=== PATIENT | female | born 1965 | race American Indian/Alaskan Native ===

== ENCOUNTER 2016-11-23 18:03 | Inpatient (IN) | payer OTHER ==
[2016-11-23] MEDS ORDERED: MYLICON PO PRN (18:46)
[2016-11-23] MEDS ORDERED: REGLAN IV PRN (18:46)
[2016-11-24] MEDS: TORADOL IV PRN ×4 (02:07→21:48)
[2016-11-24] MEDS: ZOFRAN IV PRN ×3 (02:08→21:48)
[2016-11-24] MEDS: LACTATED RINGERS 1,000 ML IV SCH ×2 (02:13→22:31)
[2016-11-24 04:28] LABS: Alanine Aminotransferase 14 units/L (7-56); Albumin 3.1 g/dL (3.9-5); Alkaline Phosphatase 65 units/L (35-129); Anion Gap 16 mmol/L; BUN/Creatinine Ratio 11.42; Blood Urea Nitrogen 8 mg/dL (7-17); Calcium 8.4 mg/dL (8.4-10.2); Carbon Dioxide 23 mmol/L (22-30); Chloride 104.2 mmol/L (98-107); Glucose 86 mg/dL (65-100); Potassium 3.8 mmol/L (3.6-5.0); Sodium 139 mmol/L (137-145); Total Protein 6.1 g/dL (6.3-8.2)
[2016-11-24 04:50] LABS: Basophils % (Auto) 0.4 % (0.0-1.8); Eosinophils % (Auto) 2.4 % (0.0-4.3); Hemoglobin 10.4 gm/dl (10.1-14.3); Mean Corpuscular HGB Conc 33 % (30-34); Mean Corpuscular Hemoglobin 27 pg (28-32); Mean Corpuscular Volume 83 fl (79-97); Red Blood Count 3.86 M/mm3 (3.65-5.03); Red Cell Distribution Width 15.3 % (13.2-15.2); White Blood Count 5.1 K/mm3 (4.5-11.0)
[2016-11-24 05:01] LABS: INR 0.95 (0.87-1.13)
[2016-11-24 05:11] LABS: Platelet Count 127 K/mm3 (140-440)
[2016-11-24] MEDS: LOVENOX SUB-Q SCH (09:26)
--- NOTE | 2016-11-24 11:42 | History and Physical Report ---
History of Present Illness Date of examination: 11/23/16 Date of admission: 11/23/16 22:37 Chief complaint: Abdominal Pain History of present illness: [51 y.o. F was admitted at [facility] with c/o abdominal pain x 3 days, n/ v when she presented to their ED. A CT abd/pelvis with PO showed focal dilation at site of distal anastomosis of her gastric bypass. There was no free air or signs of internal hernia. The patient was admitted for pain and n/v control. Over the course of her stay her n/v resolved but her abdominal pain remained. She was able to tolerate liquids and continued to have flatus and liquid bm. An ABD xr revealed all of the prior ingested PO contrasted on been evacuated. Since the patient's pain was not improving (remained at 7-8/10) despite use of toradol and tylenol, the next step would be a diagnostic laparoscopy. Dr. Heck does not perform surgery at [facility] therefore, arrangements were made for her to be transferred to [facility] in order for upcoming surgery. During patients hospital stay at [facility] she hit her toes (BL feet) on the IV pole while walking. XR images of BL feet did no reveal any fractures. Past History Past Medical History: hypertension (Reported as resolved), pulmonary embolism ( Completed Xarelto 08/2016), other (obesity and asthma) Past Surgical History: Other (hysterectomy, lap shahid, gastric bypass 2007, gastric bypass revision 2015) Social history: other (Currently unemployed due to work injury) Family history: other (Possible clotting disorders) Medications and Allergies Allergies Allergy/AdvReac Type Severity Reaction Status Date / Time levofloxacin AdvReac Unknown Unknown Unverified 11/23/16 18:34 lisinopril AdvReac Unknown Verified 11/23/16 18:30 Home Medications Medication Instructions Recorded Confirmed Last Taken Type ALBUTEROL Inhaler [ProAir HFA 11/24/16 Unknown History Inhaler] Ferrous Sulfate [Feosol] 325 mg PO BID 11/24/16 11/24/16 Unknown History Fluticasone/Salmeterol [Advair 1 each IH 11/24/16 Unknown History 100-50 Diskus] Rivaroxaban [Xarelto] 20 mg PO QDAY 11/24/16 11/24/16 Unknown History amLODIPine [Norvasc] 2.5 mg PO DAILY 11/24/16 11/24/16 Unknown History Active Meds: Active Medications Acetaminophen (Tylenol) 650 mg PO Q6H PRN PRN Reason: Pain, Mild (1-3) Enoxaparin Sodium (Lovenox) 40 mg SUB-Q QDAY [facility] Last Admin: 11/24/16 09:26 Dose: 40 mg Hydralazine HCl (Apresoline) 10 mg IV Q6H PRN PRN Reason: SBP > 150 Lactated Ringer's (Lactated Ringers) 1,000 mls @ 125 mls/hr IV DIRECT [facility] Last Admin: 11/24/16 02:13 Dose: 125 mls/hr Ketorolac Tromethamine (Toradol) 30 mg IV Q6H PRN PRN Reason: Pain , Severe (7-10) Stop: 11/25/16 18:59 Last Admin: 11/24/16 09:40 Dose: 30 mg Metoclopramide HCl (Reglan) 10 mg IV Q6H PRN PRN Reason: Nausea And Vomiting Ondansetron HCl (Zofran) 4 mg IV Q8H PRN PRN Reason: Nausea And Vomiting Last Admin: 11/24/16 09:27 Dose: 4 mg Simethicone (Mylicon) 80 mg PO Q6H PRN PRN Reason: Gas pain Review of Systems All systems: negative - Constitutional no fever, no fatigue - Cardiovascular no chest pain, no palpitations, no shortness of breath, no leg edema - Respiratory no cough, no shortness of breath, no congestion, no wheezing - Gastrointestinal abdominal pain, other (See HPI) - Genitourinary Genitourinary: no dysuria, no urinary frequency, no urgency, no mixed incontinence - Muskuloskeletal no myalgias, no limitation of motion - Integumentary no rash, no change in hair/nails - Neurological headaches, no weakness, no numbness, no tingling, no seizures, no loss of vision , no hearing difficulties - Psychiatric no anxiety, no depression - Endocrine no cold intolerance, no heat intolerance - Hematologic/Lymphatic no easy bruising, no easy bleeding - Allergic/Immunologic no urticaria Exam Vital Signs Temp Resp BP 98.4 F 18 144/94 11/23/16 23:11 11/23/16 23:11 11/23/16 23:11 - General physical appearance Positive: no distress, moderate pain - Eyes Positive: PERRL, normal occular movement - ENT Positive: no hearing loss - Neck Positive: trachea midline, no lymphadectomy - Respiratory Positive: normal expansion, normal respiratory effort, clear to auscultation - Cardiovascular Rhythm: regular Heart Sounds: Present: S1 & S2 - Extremities Extremities: no ischemia, pulses intact, pulses symmetrical, No edema, normal temperature, normal color, Full ROM - Breasts Breasts: normal - Abdomen Abdomen: Present: soft, bowel sounds normal, surgical scars, other (diffuse tenderness, reports pain mostly flank in origin). Absent: distended, masses, rebound, guarding, rigid, organomegaly - Genitourinary Female Genitourinary: deferred - Integumentary no rash, no abnormal pigmentation - Neurologic Neurologic: alert and oriented to time, place and person, motor strength and sensation are grossly intact, CN II-XII intact - Musculoskeletal normal gait, normal posture - Psychiatric Psychiatric: appropriate mood/affect Results - Labs 11/24/16 03:38 11/24/16 03:38 Abnormal lab results 11/24/16 11/24/16 Range/Units 03:38 03:38 MCH 27 L (28-32) pg RDW 15.3 H (13.2-15.2) % Plt Count 127 L (140-440) K/mm3 Lymph % (Auto) 45.2 H (13.4-35.0) % [place] % (Auto) 10.3 H (0.0-7.3) % Total Protein 6.1 L (6.3-8.2) g/dL Albumin 3.1 L (3.9-5) g/dL Diabetes panel 11/24/16 Range/Units 03:38 Sodium 139 (137-145) mmol/L Potassium 3.8 (3.6-5.0) mmol/L Chloride 104.2 (98-107) mmol/L Carbon Dioxide 23 (22-30) mmol/L BUN 8 (7-17) mg/dL Creatinine 0.7 (0.7-1.2) mg/dL Glucose 86 (65-100) mg/dL Calcium 8.4 (8.4-10.2) mg/dL AST 14 (5-40) units/L ALT 14 (7-56) units/L Alkaline Phosphatase 65 (35-129) units/L Total Protein 6.1 L (6.3-8.2) g/dL Albumin 3.1 L (3.9-5) g/dL Calcium panel 11/24/16 Range/Units 03:38 Calcium 8.4 (8.4-10.2) mg/dL Phosphorus 4.20 (2.5-4.5) mg/dL Albumin 3.1 L (3.9-5) g/dL Pituitary panel 11/24/16 Range/Units 03:38 Sodium 139 (137-145) mmol/L Potassium 3.8 (3.6-5.0) mmol/L Chloride 104.2 (98-107) mmol/L Carbon Dioxide 23 (22-30) mmol/L BUN 8 (7-17) mg/dL Creatinine 0.7 (0.7-1.2) mg/dL Glucose 86 (65-100) mg/dL Calcium 8.4 (8.4-10.2) mg/dL Adrenal panel 11/24/16 Range/Units 03:38 Sodium 139 (137-145) mmol/L Potassium 3.8 (3.6-5.0) mmol/L Chloride 104.2 (98-107) mmol/L Carbon Dioxide 23 (22-30) mmol/L BUN 8 (7-17) mg/dL Creatinine 0.7 (0.7-1.2) mg/dL Glucose 86 (65-100) mg/dL Calcium 8.4 (8.4-10.2) mg/dL Total Bilirubin 0.50 (0.1-1.2) mg/dL AST 14 (5-40) units/L ALT 14 (7-56) units/L Alkaline Phosphatase 65 (35-129) units/L Total Protein 6.1 L (6.3-8.2) g/dL Albumin 3.1 L (3.9-5) g/dL Assessment and Plan A: 51 y.o. F with hx of lap gastric bypass and lap gastric bypass revision admitted for abd pain P: Pt seen and examined in afternoon. Pt was still c/o abdominal pain mid abd radiating to her flank, 7-8. The pain had not changed. Pain medication help with the pain but the pain has not improved since admission to [facility]. Dr. Heck does not do surgery at [facility] hence reason for transfer to this facility. The patients needs diagnostic laparoscopy to assess the source of pain. The need for transfer had been discussed with the patient and she agreed to the transfer. Will manage pain with APAP and Toradol to avoid narcotics and the decreased GI motility it causes. Due to flank pain now being the origin, UTI suspect and U/A to be ordered.
--- NOTE | 2016-11-24 12:29 | History and Physical Report ---
History of Present Illness Date of examination: 11/24/16 Date of admission: 11/23/16 22:37 Chief complaint: abd pain History of present illness: 51 y.o. F transferred from [facility] with c/c of abdominal pain. At time of admission at [facility] [place] [facility] pt was c/o, abdominal pain, and n/v. A CT abd/pelvis with PO at time of admission showed focal dilation at site of distal anastomosis of her gastric bypass. There was no free air or signs of internal hernia. The patient was admitted for pain and n/v control. Over the course of her stay her n/v resolved but her abdominal pain remained. She was able to tolerate liquids and continued to have flatus and liquid bm. An ABDxr revealed all of the prior ingested PO contrasted on been evacuated. Since the patient's pain was not improving (remained at 7-8/10) despite use of toradol and tylenol, the next step would be a diagnostic laparoscopy. Dr. Heck does not perform surgery at [facility], there she was transf. to [facility].. Currently she continues to have abdominal pain, mid abd. Radiation to BL flanks. She denies dysuria. She denies n/v. +headache. She is passing flatus and has loose stools. She had a gastric bypass revision in 2015 after which she had a PE. She was seen by a vascular doctor per patient and her primary care doctor. She finished her xeralto in August 2016. She states she never had a work up for any heme disorders. Her primary care doctor is Dr. Moore Pre-revision bypass wt: 250lbs Wt: 185 last colonoscopy: per pt was done 10 years ago but unknown reason. Pt states it was "normal" Past History Past Medical History: hypertension, pulmonary embolism (finshed xeralto August 2016), other (PE ) Past Surgical History: hysterectomy, Other (Lap gastric bypass 2007, Lap gastric bypass revision December 2015) Social history: other (recent work injury keeps her from being able to work. ) Family history: no significant family history Medications and Allergies Allergies Allergy/AdvReac Type Severity Reaction Status Date / Time levofloxacin AdvReac Unknown Unknown Unverified 11/23/16 18:34 lisinopril AdvReac Unknown Verified 11/23/16 18:30 Home Medications Medication Instructions Recorded Confirmed Last Taken Type ALBUTEROL Inhaler [ProAir HFA 11/24/16 Unknown History Inhaler] Ferrous Sulfate [Feosol] 325 mg PO BID 11/24/16 11/24/16 Unknown History Fluticasone/Salmeterol [Advair 1 each IH 11/24/16 Unknown History 100-50 Diskus] Rivaroxaban [Xarelto] 20 mg PO QDAY 11/24/16 11/24/16 Unknown History amLODIPine [Norvasc] 2.5 mg PO DAILY 11/24/16 11/24/16 Unknown History Active Meds: Active Medications Acetaminophen (Tylenol) 650 mg PO Q6H PRN PRN Reason: Pain, Mild (1-3) Diphenhydramine HCl (Benadryl) 25 mg IV QHS PRN PRN Reason: Insomnia Enoxaparin Sodium (Lovenox) 40 mg SUB-Q QDAY [facility] Last Admin: 11/24/16 09:26 Dose: 40 mg Famotidine (Pepcid) 20 mg IV QDAY [facility] Hydralazine HCl (Apresoline) 10 mg IV Q6H PRN PRN Reason: Hypertension Lactated Ringer's (Lactated Ringers) 1,000 mls @ 125 mls/hr IV DIRECT [facility] Last Admin: 11/24/16 02:13 Dose: 125 mls/hr Ketorolac Tromethamine (Toradol) 30 mg IV Q6H PRN PRN Reason: Pain , Severe (7-10) Stop: 11/25/16 18:59 Last Admin: 11/24/16 09:40 Dose: 30 mg Ondansetron HCl (Zofran) 4 mg IV Q8H PRN PRN Reason: Nausea And Vomiting Last Admin: 11/24/16 09:27 Dose: 4 mg Simethicone (Mylicon) 80 mg PO Q6H PRN PRN Reason: Gas pain Sucralfate (Carafate) 1 gm PO Q6HR [facility] Review of Systems All systems: negative - Constitutional weakness, chronic headaches, no chills, no sweats, no anorexia, no fatigue, no lethargy - Cardiovascular no chest pain, no orthopnea, no palpitations - Respiratory no cough, no cough with sputum, no excessive sputum, no hemoptysis - Gastrointestinal other (per hpi ) - Genitourinary Genitourinary: flank pain, no dyspareunia, no dysmenorrhea, no pelvic pain, no dysuria - Muskuloskeletal other (bl knee pain ) - Integumentary no rash, no pruritis, no redness, no sores, no wounds, no jaundice - Neurological no head injury - Psychiatric change in sleep habits, no anxiety, no memory loss Exam Vital Signs Temp Resp BP 98.4 F 18 144/94 11/23/16 23:11 11/23/16 23:11 11/23/16 23:11 - General physical appearance Positive: well developed, well nourished, no distress, obese - Eyes Positive: PERRL - Respiratory Positive: normal expansion, normal respiratory effort - Cardiovascular Rhythm: regular - Extremities Extremities: no ischemia, pulses intact, pulses symmetrical Peripheral Pulses: within normal limits - Abdomen Abdomen: Present: soft, bowel sounds normal, other (non distended. soft, tender midabd. tender righ flank. no rebound no guarding no peritoneal signs ). Absent : distended - Genitourinary Female Genitourinary: deferred - Integumentary no rash, no growths - Neurologic Neurologic: alert and oriented to time, place and person, motor strength and sensation are grossly intact - Musculoskeletal normal posture - Psychiatric Psychiatric: appropriate mood/affect Results - Labs 11/24/16 03:38 11/24/16 03:38 Abnormal lab results 11/24/16 11/24/16 Range/Units 03:38 03:38 MCH 27 L (28-32) pg RDW 15.3 H (13.2-15.2) % Plt Count 127 L (140-440) K/mm3 Lymph % (Auto) 45.2 H (13.4-35.0) % [place] % (Auto) 10.3 H (0.0-7.3) % Total Protein 6.1 L (6.3-8.2) g/dL Albumin 3.1 L (3.9-5) g/dL Diabetes panel 11/24/16 Range/Units 03:38 Sodium 139 (137-145) mmol/L Potassium 3.8 (3.6-5.0) mmol/L Chloride 104.2 (98-107) mmol/L Carbon Dioxide 23 (22-30) mmol/L BUN 8 (7-17) mg/dL Creatinine 0.7 (0.7-1.2) mg/dL Glucose 86 (65-100) mg/dL Calcium 8.4 (8.4-10.2) mg/dL AST 14 (5-40) units/L ALT 14 (7-56) units/L Alkaline Phosphatase 65 (35-129) units/L Total Protein 6.1 L (6.3-8.2) g/dL Albumin 3.1 L (3.9-5) g/dL Calcium panel 11/24/16 Range/Units 03:38 Calcium 8.4 (8.4-10.2) mg/dL Phosphorus 4.20 (2.5-4.5) mg/dL Albumin 3.1 L (3.9-5) g/dL Pituitary panel 11/24/16 Range/Units 03:38 Sodium 139 (137-145) mmol/L Potassium 3.8 (3.6-5.0) mmol/L Chloride 104.2 (98-107) mmol/L Carbon Dioxide 23 (22-30) mmol/L BUN 8 (7-17) mg/dL Creatinine 0.7 (0.7-1.2) mg/dL Glucose 86 (65-100) mg/dL Calcium 8.4 (8.4-10.2) mg/dL Adrenal panel 11/24/16 Range/Units 03:38 Sodium 139 (137-145) mmol/L Potassium 3.8 (3.6-5.0) mmol/L Chloride 104.2 (98-107) mmol/L Carbon Dioxide 23 (22-30) mmol/L BUN 8 (7-17) mg/dL Creatinine 0.7 (0.7-1.2) mg/dL Glucose 86 (65-100) mg/dL Calcium 8.4 (8.4-10.2) mg/dL Total Bilirubin 0.50 (0.1-1.2) mg/dL AST 14 (5-40) units/L ALT 14 (7-56) units/L Alkaline Phosphatase 65 (35-129) units/L Total Protein 6.1 L (6.3-8.2) g/dL Albumin 3.1 L (3.9-5) g/dL Assessment and Plan - Patient Problems (1) Abdominal pain Current Visit: Yes Status: Acute Qualifiers: Abdominal location: A Plan to address problem: 51 y.o. F with hx of gastric bypass and revision 1 year ago: Presents with abdominal pain Pt is still c/o abdominal pain mid abd raidating to her flank, now 6-7/10 prev 8 -9. Continue pain control with toradol and tylenol. Avoid narcotics as they slow the bowel. Pt's pain has not significantly improved over her course at [facility]. She has been transferred to [facility] in order to have a diag laparoscopy, possible revision of bypass with Dr. Heck on Saturday. Source of pain is likely site of J-J anas where there is dilation and stasis of the jejunum causing pain. This phenomenon occurs with bypass patients but pain should be improving. She continues to have flatus and bowel movements and tolerates PO intake. She does not have fever or leukocytosis that would indicate an acute abdominal process. No acute surgery indicated at this time but non emergent diagnostic laparoscopy is warranted. Preop labs ordered for today. EKG to be performed as preop. Pt will remain on a Augusto I diet until Saturday night at which point she will be NPO. Encourage high protien intake. Pre albumin ordered for tomorrow am. Flank pain- r/yo cause. UA and urine culture ordered. Hx of PE: recently finished coursed of xeralto. PE post surgery and further work up for coagulation disorders has not been performed. Rec. pt follow up with heme/primary care at time of dc. Nausea: prn zofran GI proph: famotidine DVT proph: lovenox SCDs
--- NOTE | 2016-11-24 13:02 | Event Note ---
Per nursing records admission documentation overnight pt felt suicidal and when asked if she had a plan the answer was yes. Today, patient states she never felt suicidal and does not have a plan to harm herself. She wants to get better in order to take care of her grandson. She does not want to be in pain anymore and wants to have the surgery to figure what the problem. Liana the nurse was present during this conversation.
[2016-11-24] MEDS: PEPCID IV SCH ×3 (13:20→13:29)
[2016-11-24] MEDS: TYLENOL PO PRN (13:22)
[2016-11-24] MEDS: CARAFATE PO SCH ×2 (13:23→18:26)
[2016-11-24] MEDS: APRESOLINE IV PRN ×2 (15:57→21:50)
[2016-11-24 18:45] LABS: Bilirubin,Urine NEG (Negative); Blood,Urine NEG (Negative); Ketones,Urine NEG (Negative); Leukocyte Esterase,Urine TR (Negative); Mucus,Urine FEW /HPF; Nitrite,Urine NEG (Negative); Protein,Urine <15 mg/dL mg/dL (Negative); Urobilinogen,Urine < 2.0 mg/dL (<2.0)
[2016-11-24] MEDS: BENADRYL IV PRN (22:28)
[2016-11-25] MEDS: TYLENOL PO PRN (01:47)
[2016-11-25] MEDS: CARAFATE PO SCH ×4 (01:54→23:44)
[2016-11-25] MEDS: ZOFRAN IV PRN ×2 (04:14→23:35)
[2016-11-25] MEDS: TORADOL IV PRN ×2 (04:15→16:34)
[2016-11-25 04:59] LABS: Alanine Aminotransferase 12 units/L (7-56); Albumin 3.2 g/dL (3.9-5); Alkaline Phosphatase 69 units/L (35-129); Anion Gap 16 mmol/L; BUN/Creatinine Ratio 12.85; Blood Urea Nitrogen 9 mg/dL (7-17); Calcium 8.7 mg/dL (8.4-10.2); Carbon Dioxide 24 mmol/L (22-30); Chloride 103.5 mmol/L (98-107); Glucose 114 mg/dL (65-100); Potassium 3.8 mmol/L (3.6-5.0); Sodium 140 mmol/L (137-145); Total Protein 6.5 g/dL (6.3-8.2)
[2016-11-25 05:05] LABS: Basophils % (Auto) 0.4 % (0.0-1.8); Eosinophils % (Auto) 1.9 % (0.0-4.3); Hemoglobin 10.9 gm/dl (10.1-14.3); Mean Corpuscular HGB Conc 32 % (30-34); Mean Corpuscular Hemoglobin 27 pg (28-32); Mean Corpuscular Volume 83 fl (79-97); Red Blood Count 4.11 M/mm3 (3.65-5.03); Red Cell Distribution Width 15.3 % (13.2-15.2); White Blood Count 6.7 K/mm3 (4.5-11.0)
[2016-11-25 05:22] LABS: Platelet Count 138 K/mm3 (140-440)
[2016-11-25] MEDS: LOVENOX SUB-Q SCH ×2 (08:31→10:05)
[2016-11-25] MEDS: PEPCID IV SCH ×2 (08:31→10:05)
[2016-11-25] MEDS ORDERED: MAGNESIUM SULFATE IV ONE (09:49)
[2016-11-25] MEDS ORDERED: MORPHINE IV PRN (09:49)
--- NOTE | 2016-11-25 10:31 | Progress Note ---
Assessment and Plan - Patient Problems (1) Abdominal pain Current Visit: Yes Status: Acute Qualifiers: Abdominal location: A Plan to address problem: 51 y/o F with PMH of gastric bypass (2007) and gastric bypass revision (2015) presents with worsening abdominal pain. CT abd [place] [facility] showed dilation to JJ anastomosis, but repeat abd xr showed contrast throughout the entire GI tract without signs of dilation or obstruction. Rpt Abdxr days later showed complete elimination of contrast from GI tract. . Pt was transferred to [facility] 1 day ago for diagnostic lap with possible gastric bypass revision with Dr. Heck on Saturday. Pt c/o of continued diffuse abd pain radiating to bilat flanks. States no improvement with Toradol and Tylenol. Will add on Morphine due to lack of improvement in pain. No fever or leukocystosis. Pt to have non emergent diagnostic laparoscopy with Dr. Heck on Saturday with possible revision. EKG to be preformed preop. Pt to remain on Augusto diet until Saturday night and then will be NPO. Pre-albumin low at 0.170. Encouraged to continue high protein intake. If revision of bypass is warranted at time of surgery after evaluation via diagnostic laparoscopy she would be at greater risk for possible leak or anastomosis breakdown due to low prealbumin. The increased risk will be discussed with the patient so she fully understands the risks and benefits of the procedure. Pt takes percocet prn at home for knee pain and headaches. She does not state how much or how often. Her generalized body aches and continued abdominal pain could be from withdrawl of narcotics (as well as different pain threshold) since she has received very minimal to no morphine during her hospital stay until today. Due to her hx of bypass she still needs to go for dx lap in order to assess her bypass due to abdominal pain. Morphine will be added prn for severe pain. Flank pain - UA negative. Urine culture pending. Headache - Reports worst headache of her life. Hx of migraines. Family hx of aneurysms. CT head stat ordered. No gross deficits at this time DVT prophylaxis - SCDs and Lovenox Nausea - PRN Zofran GI prophylaxis - Famotidine Subjective Narrative: Pt seen and examined. Per nurse, no acute events overnight. Pt c/o progressively worsening bitemporal GRAF for the past 6 days and states it is "the worst headache of her life". Pt also reports diffuse abd pain radiating to her bilat flanks. Pt states she is passing gas and had an episode of watery diarrhea his morning. Pt c/o nausea secondary to her headache and states she attempted to vomit but only brought up mucous with some streaks of blood. At home pt states she usually takes percocet at home for headache or knee pain. She does not take it everyday but does not state how often she takes it. Pt refusing her Tylenol because she states it is making her nauseous and caused her to vomit. Denies any dysuria, hematuria, melena, vision changes, dizziness, or syncope. Denies focal weakness or numbness. She is also c/o generalized pain including her knees and back. Objective Vital Signs - 12hr 11/25/16 11/25/16 11/25/16 01:14 01:36 04:29 Temperature 98.2 F 98.2 F 98.2 F Pulse Rate 104 H 95 H Respiratory 22 22 18 Rate Blood Pressure 143/85 127/80 Blood Pressure 143/85 [Left] O2 Sat by Pulse 100 97 Oximetry 11/25/16 07:43 Temperature 98.4 F Pulse Rate Respiratory 18 Rate Blood Pressure 137/97 Blood Pressure [Left] O2 Sat by Pulse Oximetry - General physical appearance well developed, well nourished, moderate distress - Eyes PERRL, normal occular movement - ENT normal nares, no hearing loss - Neck trachea midline - Respiratory normal expansion, normal respiratory effort, clear to auscultation - Abdomen soft, tender (mid abd, RLQ and LLQ. ), bowel sounds hypoactive, not distended, not rebound, not guarding - Integumentary no rash - Neurologic normal coordination, normal sensation - Musculoskeletal normal posture - Psychiatric oriented to time, oriented to person, oriented to place, speech is normal - Additional Exam CN II to XII are intact. no gross deficits noted. - Labs 11/25/16 04:20 11/25/16 04:20 Diabetes panel 11/25/16 Range/Units 04:20 Sodium 140 (137-145) mmol/L Potassium 3.8 (3.6-5.0) mmol/L Chloride 103.5 (98-107) mmol/L Carbon Dioxide 24 (22-30) mmol/L BUN 9 (7-17) mg/dL Creatinine 0.7 (0.7-1.2) mg/dL Glucose 114 H (65-100) mg/dL Calcium 8.7 (8.4-10.2) mg/dL AST 20 (5-40) units/L ALT 12 (7-56) units/L Alkaline Phosphatase 69 (35-129) units/L Total Protein 6.5 (6.3-8.2) g/dL Albumin 3.2 L (3.9-5) g/dL Calcium panel 11/25/16 Range/Units 04:20 Calcium 8.7 (8.4-10.2) mg/dL Phosphorus 4.20 (2.5-4.5) mg/dL Albumin 3.2 L (3.9-5) g/dL Pituitary panel 11/25/16 Range/Units 04:20 Sodium 140 (137-145) mmol/L Potassium 3.8 (3.6-5.0) mmol/L Chloride 103.5 (98-107) mmol/L Carbon Dioxide 24 (22-30) mmol/L BUN 9 (7-17) mg/dL Creatinine 0.7 (0.7-1.2) mg/dL Glucose 114 H (65-100) mg/dL Calcium 8.7 (8.4-10.2) mg/dL Adrenal panel 11/25/16 Range/Units 04:20 Sodium 140 (137-145) mmol/L Potassium 3.8 (3.6-5.0) mmol/L Chloride 103.5 (98-107) mmol/L Carbon Dioxide 24 (22-30) mmol/L BUN 9 (7-17) mg/dL Creatinine 0.7 (0.7-1.2) mg/dL Glucose 114 H (65-100) mg/dL Calcium 8.7 (8.4-10.2) mg/dL Total Bilirubin 0.50 (0.1-1.2) mg/dL AST 20 (5-40) units/L ALT 12 (7-56) units/L Alkaline Phosphatase 69 (35-129) units/L Total Protein 6.5 (6.3-8.2) g/dL Albumin 3.2 L (3.9-5) g/dL - Imaging CT Scan - head: pending
--- NOTE | 2016-11-25 12:26 | Cat Scan Report ---
CT HEAD WITHOUT CONTRAST: HISTORY: Severe headache, worst headache of life. Serial contiguous axial images were obtained through the cranium. Intravenous contrast material was not administered. The ventricles are normal in size and appearance. There is no mass effect or midline shift. No areas of abnormally increased or decreased attenuation are seen. No mass lesion is seen. The mastoid air cells and visualized portions of the sinuses are normal. IMPRESSION: Cranial CT scan within normal limits.
[2016-11-25] MEDS: D5W/0.45% NACL/KCL 20 MEQ 20 MEQ/1,000 ML BAG IV SCH ×2 (12:35→23:39)
[2016-11-25] MEDS ORDERED: MAGNESIUM SULFATE 2GM/50ML 2 GM/50 ML BAG IV ONE (13:00)
[2016-11-25] MEDS: BENADRYL IV PRN (23:35)
[2016-11-26 03:59] LABS: Hematocrit 32.5 % (30.3-42.9); Hemoglobin 10.3 gm/dl (10.1-14.3); Mean Corpuscular HGB Conc 32 % (30-34); Mean Corpuscular Hemoglobin 27 pg (28-32); Mean Corpuscular Volume 84 fl (79-97); Platelet Count 221 K/mm3 (140-440); Red Blood Count 3.88 M/mm3 (3.65-5.03); Red Cell Distribution Width 14.8 % (13.2-15.2); White Blood Count 5.3 K/mm3 (4.5-11.0)
[2016-11-26 04:17] LABS: Alanine Aminotransferase 15 units/L (7-56); Albumin 2.8 g/dL (3.9-5); Albumin/Globulin Ratio 0.9 %; Alkaline Phosphatase 62 units/L (35-129); Anion Gap 17 mmol/L; Blood Urea Nitrogen 8 mg/dL (7-17); Calcium 8.5 mg/dL (8.4-10.2); Carbon Dioxide 25 mmol/L (22-30); Chloride 104.3 mmol/L (98-107); Glucose 82 mg/dL (65-100); Potassium 4.1 mmol/L (3.6-5.0); Sodium 142 mmol/L (137-145); Total Protein 5.8 g/dL (6.3-8.2)
[2016-11-26 05:10] LABS: Blastocytes % (Manual) 0 %; Eosinophils % (Manual) 0 % (0.0-4.3)
[2016-11-26 05:11] LABS: Diff Status Complete; Platelet Estimate Consistent w Auto
[2016-11-26] MEDS: CARAFATE PO SCH ×3 (05:20→18:36)
[2016-11-26] MEDS ORDERED: HEPARIN/NS 5000 UNIT/500ML(CATH LAB) 500 ML IR ONE (08:24)
[2016-11-26] MEDS ORDERED: XYLOCAINE 2% INFILTRATI ONE ×2 (08:24→09:19)
[2016-11-26] MEDS ORDERED: VERSED ONE (08:25)
[2016-11-26] MEDS ORDERED: SUBLIMAZE ONE (08:26)
[2016-11-26] MEDS ORDERED: NACL 0.9% 500 ML 500 ML ONE (08:57)
[2016-11-26] MEDS ORDERED: VERSED IV ONE (09:15)
[2016-11-26] MEDS ORDERED: SUBLIMAZE IV ONE (09:15)
--- NOTE | 2016-11-26 09:44 | Operative Report ---
Operative Report Operative Report: EXAM: ULTRASOUND-GUIDED AND FLUOROSCOPIC GUIDED BASEMENT OF IVC FILTER CLINICAL INDICATION: PATIENT WITH A HISTORY OF DVT FOLLOWING GASTRIC BYPASS, PREOPERATIVE PLACEMENT OF IVC FILTER SECONDARY TO GASTRIC REVISION DATE: 11/26/2016 PROCEDURE: Following an explanation of the risks, benefits and alternatives; written informed consent was obtained. The patient was brought to the angiographic suite and placed in supine position on the examination table. Initial ultrasound evaluation of her right groin demonstrated a patent right common femoral vein. The right groin was prepped and draped in the usual sterile fashion. 1% lidocaine was used for anesthesia. Under ultrasound guidance, the right common femoral vein was cannulated with a 7 cm 18-gauge needle. A 0.035 guidewire was advanced centrally under fluoroscopy. The needle was removed and a 5 Malay sheath placed. Contrast was injected through the sheath for anatomic localization. There is reflux of contrast into the left common iliac vein demonstrating a patent bifurcated system. The level of the lowest renal veins was identified. The IVC is of appropriate size criteria. No intraluminal thrombus is identified. The 5 Malay sheath was exchanged for an 11 Malay IVC filter introducer trocar and sheath which was advanced above the level of the renal veins. The trocar and guidewire were removed. A Bard Hood IVC filter was then advanced through the sheath and deployed to position the tip at the inferior endplate of L2. Post deployment imaging devastated satisfactory positioning with no significant tilt. The sheath was removed and hemostasis achieved in the right groin using manual compression. A sterile dressing was then applied. The patient tolerated the procedure well. There were no immediate post procedure complications. Conscious sedation was performed under the guidance of radiologic nursing. Continuous cardiopulmonary monitoring was utilized. IMPRESSION: 1) Ultrasound and fluoroscopic guided infa-renal IVC filter placement
[2016-11-26] MEDS: PEPCID IV SCH (10:12)
[2016-11-26] MEDS: LOVENOX SUB-Q SCH (10:12)
--- NOTE | 2016-11-26 11:19 | Progress Note ---
Assessment and Plan - Patient Problems (1) Abdominal pain Current Visit: Yes Status: Acute Qualifiers: Abdominal location: A Plan to address problem: 51 y/o F with PMH of gastric bypass (2007) and gastric bypass revision (2015) presents with worsening abdominal pain. CT abd at [facility] showed dilation to JJ anastomosis, but repeat abd xr showed contrast throughout the entire GI tract without signs of dilation or obstruction. Rpt Abdxr days later showed complete elimination of contrast from GI tract. . Pt was transferred to [facility] 1 day ago for diagnostic lap with possible gastric bypass revision with Dr. Heck on Saturday. Will add on Morphine due to lack of improvement in pain. No fever or leukocystosis. Pt to have non emergent diagnostic laparoscopy with Dr. Heck on Saturday with possible revision. EKG to be preformed preop. Pt to remain on Augusto diet until Saturday night and then will be NPO. Pre-albumin low at 0.170. Encouraged to continue high protein intake. If revision of bypass is warranted at time of surgery after evaluation via diagnostic laparoscopy she would be at greater risk for possible leak or anastomosis breakdown due to low prealbumin. The increased risk was fully discussed with the patient so she fully understands the risks and benefits of the procedure. Pt takes percocet prn at home for knee pain and headaches. She does not state how much or how often. Her generalized body aches and continued abdominal pain could be from withdrawl of narcotics (as well as different pain threshold) since she has received very minimal to no morphine during her hospital stay until today. Due to her hx of bypass she still needs to go for dx lap in order to assess her bypass due to abdominal pain. Morphine will be added prn for severe pain. Hx of PE: finished xeralto course in August. High risk for PE. Pt is now s/p insertion of IVC filter. Flank pain - UA negative. Urine culture pending. Headache - Reports worst headache of her life. Hx of migraines. Family hx of aneurysms. CT head stat ordered. No gross deficits at this time = CT head negative. DVT prophylaxis - SCDs and Lovenox Nausea - PRN Zofran GI prophylaxis - Famotidine Subjective Narrative: Pt continues to have mid abdominal pain and GRAF. H/A improves with morphine. + nausea. no vomiting. +flatus and loose stool. afebrile . She underwent IVC Filter placement this am without issues. Objective Vital Signs - 12hr 11/26/16 11/26/16 11/26/16 07:51 07:52 07:53 Temperature 97.7 F 97.7 F Pulse Rate 77 86 84 Respiratory 20 20 Rate Respiratory Rate [Abdomen] Blood Pressure 121/83 O2 Sat by Pulse 96 98 97 Oximetry 11/26/16 11/26/16 10:09 10:44 Temperature Pulse Rate 77 Respiratory 20 Rate Respiratory 20 Rate [Abdomen] Blood Pressure 129/89 O2 Sat by Pulse 99 Oximetry - General physical appearance Narrative Exam: Gen: alert and awake Cardio RRR Lung: equal rise and fall of chest Abd: soft tender midline. no rebound no guarding. - Labs 11/26/16 03:20 11/26/16 03:20 Diabetes panel 11/26/16 Range/Units 03:20 Sodium 142 (137-145) mmol/L Potassium 4.1 (3.6-5.0) mmol/L Chloride 104.3 (98-107) mmol/L Carbon Dioxide 25 (22-30) mmol/L BUN 8 (7-17) mg/dL Creatinine 0.8 (0.7-1.2) mg/dL Glucose 82 (65-100) mg/dL Calcium 8.5 (8.4-10.2) mg/dL AST 17 (5-40) units/L ALT 15 (7-56) units/L Alkaline Phosphatase 62 (35-129) units/L Total Protein 5.8 L (6.3-8.2) g/dL Albumin 2.8 L (3.9-5) g/dL Calcium panel 11/26/16 Range/Units 03:20 Calcium 8.5 (8.4-10.2) mg/dL Phosphorus 5.00 H (2.5-4.5) mg/dL Albumin 2.8 L (3.9-5) g/dL Pituitary panel 11/26/16 Range/Units 03:20 Sodium 142 (137-145) mmol/L Potassium 4.1 (3.6-5.0) mmol/L Chloride 104.3 (98-107) mmol/L Carbon Dioxide 25 (22-30) mmol/L BUN 8 (7-17) mg/dL Creatinine 0.8 (0.7-1.2) mg/dL Glucose 82 (65-100) mg/dL Calcium 8.5 (8.4-10.2) mg/dL Adrenal panel 11/26/16 Range/Units 03:20 Sodium 142 (137-145) mmol/L Potassium 4.1 (3.6-5.0) mmol/L Chloride 104.3 (98-107) mmol/L Carbon Dioxide 25 (22-30) mmol/L BUN 8 (7-17) mg/dL Creatinine 0.8 (0.7-1.2) mg/dL Glucose 82 (65-100) mg/dL Calcium 8.5 (8.4-10.2) mg/dL Total Bilirubin 0.60 (0.1-1.2) mg/dL AST 17 (5-40) units/L ALT 15 (7-56) units/L Alkaline Phosphatase 62 (35-129) units/L Total Protein 5.8 L (6.3-8.2) g/dL Albumin 2.8 L (3.9-5) g/dL
[2016-11-26] MEDS ORDERED: NORCO PO ONE (14:00)
[2016-11-26] MEDS: MORPHINE IV PRN (18:30)
[2016-11-26] MEDS: D5W/0.45% NACL/KCL 20 MEQ 20 MEQ/1,000 ML BAG IV SCH (21:49)
[2016-11-27] MEDS ORDERED: NACL 0.9% IR ONE
[2016-11-27] MEDS ORDERED: XYLOCAINE 1% 20 mL INFILTRATI ONE
[2016-11-27] MEDS ORDERED: MARCAINE-EPI 0.5%-1:200,000 INFILTRATI ONE
[2016-11-27] MEDS: BENADRYL IV PRN (01:06)
[2016-11-27] MEDS: MORPHINE IV PRN (01:06)
[2016-11-27] MEDS: CARAFATE PO SCH ×2 (06:09→16:51)
[2016-11-27 06:30] LABS: Basophils % (Auto) 0.4 % (0.0-1.8); Eosinophils % (Auto) 2.3 % (0.0-4.3); Hematocrit 32.2 % (30.3-42.9); Hemoglobin 10.3 gm/dl (10.1-14.3); Mean Corpuscular HGB Conc 32 % (30-34); Mean Corpuscular Hemoglobin 27 pg (28-32); Mean Corpuscular Volume 84 fl (79-97); Platelet Count 239 K/mm3 (140-440); Red Blood Count 3.85 M/mm3 (3.65-5.03)
[2016-11-27 06:49] LABS: Alanine Aminotransferase 13 units/L (7-56); Albumin 2.9 g/dL (3.9-5); Albumin/Globulin Ratio 1.1 %; Alkaline Phosphatase 62 units/L (35-129); Anion Gap 13 mmol/L; BUN/Creatinine Ratio 12; Blood Urea Nitrogen 11 mg/dL (7-17); Calcium 8.7 mg/dL (8.4-10.2); Carbon Dioxide 25 mmol/L (22-30); Glucose 83 mg/dL (65-100); Potassium 4.2 mmol/L (3.6-5.0); Sodium 140 mmol/L (137-145); Total Protein 5.6 g/dL (6.3-8.2)
[2016-11-27] MEDS: HEPARIN SUB-Q SCH ×2 (08:52→16:51)
[2016-11-27] MEDS: PEPCID IV SCH (10:52)
[2016-11-27] MEDS ORDERED: TRANSDERM-SCOP TD NR (15:00)
[2016-11-27] MEDS ORDERED: VERSED IV NR (15:00)
[2016-11-27] MEDS ORDERED: LACTATED RINGERS 1,000 ML IV SCH (15:00)
[2016-11-27] MEDS ORDERED: NEO SYNEPHRINE/NS Syringe(OR USE) IV ONE (16:00)
[2016-11-27] MEDS ORDERED: DIPRIVAN 10 MG/ML IV ONE (16:08)
[2016-11-27] MEDS ORDERED: SUBLIMAZE ONE (16:08)
[2016-11-27] MEDS ORDERED: ZEMURON IV ONE (16:10)
[2016-11-27] MEDS ORDERED: XYLOCAINE MPF 2% ONE (16:10)
[2016-11-27] MEDS ORDERED: NEOSTIGMINE ONE (16:12)
[2016-11-27] MEDS ORDERED: ZOFRAN ONE (16:12)
[2016-11-27] MEDS ORDERED: ROBINUL ONE ×2 (16:12)
[2016-11-27] MEDS ORDERED: DECADRON ONE (16:12)
[2016-11-27] MEDS: LACTATED RINGERS 1,000 ML IV SCH (16:21)
--- NOTE | 2016-11-27 16:24 | Anesthesia Consultation ---
Anesthesia Consult and Med Hx Date of service: 11/27/16 - Airway Anesthetic Teeth Evaluation: Good, Dentures (upper) ROM Head & Neck: Adequate Mental/Hyoid Distance: Adequate Mallampati Class: Class II Intubation Access Assessment: Probably Good - Pulmonary Exam CTA: Yes - Cardiac Exam Cardiac Exam: RRR - Pre-Operative Health Status ASA Pre-Surgery Classification: ASA2 Proposed Anesthetic Plan: General - Pulmonary Hx Asthma: Yes (Uses prn inhaler) COPD: No Hx Pneumonia: No - Cardiovascular System Hx Hypertension: Yes (since admission, none previously) - Central Nervous System Hx Seizures: No CVA: No - Endocrine Hx End Stage Renal Disease: No Hx Non-Insulin Dependent Diabetes: No Hx Thyroid Disease: No - Hematic Hx Anemia: Yes (Had blood transfusions before, H/H normal today) - Other Systems Hx Cancer: No - Additional Comments Anesthesia Medical History Comments: previous gastric bypass
--- NOTE | 2016-11-27 16:24 | Anesthesia Day of Surgery ---
Anesthesia Day of Surgery - Day of Surgery Patient Examined: Yes Patient H&P Reviewed: Yes Patient is NPO: Yes
[2016-11-27] MEDS ORDERED: FLAGYL 500 MG/100 ML 500 MG/100 ML BAG IV ONE (16:45)
[2016-11-27] MEDS ORDERED: ANCEF ONE (16:45)
[2016-11-27] MEDS ORDERED: XYLOCAINE 1% 20 mL ONE (17:15)
[2016-11-27] MEDS ORDERED: MARCAINE-EPI/PF 0.5%-1:200,000 INFILTRATI ONE ×2 (17:15)
[2016-11-27] MEDS ORDERED: ePHEDrine SULFATE ONE (17:22)
[2016-11-27] MEDS ORDERED: DILAUDID ONE (17:47)
[2016-11-27] MEDS ORDERED: REGLAN IV PRN (17:50)
[2016-11-27] MEDS ORDERED: NORCO PO PRN (17:50)
[2016-11-27] MEDS ORDERED: MYLICON PO PRN (17:50)
[2016-11-27] MEDS ORDERED: APRESOLINE IV PRN (17:50)
[2016-11-27] MEDS ORDERED: ZOFRAN IV PRN (17:50)
[2016-11-27] MEDS ORDERED: DILAUDID IV PRN (17:50)
[2016-11-27] MEDS: DILAUDID IV PRN ×3 (18:26→19:30)
--- NOTE | 2016-11-27 18:56 | Post Anesthesia Evaluation ---
- Post Anesthesia Evaluation Patient Participated: Yes Airway Patent: Yes Stable Respiratory Function: Yes Nausea/Vomiting: No Temp > 96.8F: Yes Pain Manageable: Yes Adequeate Hydration: Yes Anesthesia Complications: No Block Receding Appropriately: Not Applicable Patient on Ventilator: No
[2016-11-28] MEDS: CARAFATE PO SCH ×4 (04:37→18:05)
[2016-11-28] MEDS: LACTATED RINGERS 1,000 ML IV SCH ×2 (04:38→13:02)
[2016-11-28] MEDS: MORPHINE IV PRN ×2 (07:00→12:57)
[2016-11-28] MEDS ORDERED: LOVENOX SUB-Q SCH (10:00)
[2016-11-28 11:44] LABS: Basophils % (Auto) 0.3 % (0.0-1.8); Hematocrit 30.8 % (30.3-42.9); Hemoglobin 10.2 gm/dl (10.1-14.3); Mean Corpuscular HGB Conc 33 % (30-34); Mean Corpuscular Hemoglobin 27 pg (28-32); Mean Corpuscular Volume 82 fl (79-97); Platelet Count 221 K/mm3 (140-440); Red Blood Count 3.74 M/mm3 (3.65-5.03); Red Cell Distribution Width 14.8 % (13.2-15.2); White Blood Count 6.9 K/mm3 (4.5-11.0)
[2016-11-28 12:03] LABS: Albumin/Globulin Ratio 1.1 %; Alkaline Phosphatase 65 units/L (35-129); Anion Gap 18 mmol/L; BUN/Creatinine Ratio 4; Blood Urea Nitrogen 4 mg/dL (7-17); Calcium 8.7 mg/dL (8.4-10.2); Carbon Dioxide 23 mmol/L (22-30); Chloride 102.7 mmol/L (98-107); Glucose 91 mg/dL (65-100); Sodium 140 mmol/L (137-145); Total Protein 5.8 g/dL (6.3-8.2)
[2016-11-28 12:06] LABS: Alanine Aminotransferase < 5 units/L (7-56)
[2016-11-28] MEDS: PEPCID IV SCH (12:57)
--- NOTE | 2016-11-28 14:06 | Progress Note ---
Assessment and Plan 51 y/o F with PMH of gastric bypass (2007) and gastric bypass revision (2015) presents with worsening abdominal pain. Diagnostic lap 11/27/2016 was unremarkable. No abnormalities requiring surgical intervention were indicated at the time. Pt is feeling better with improved abdominal pain and headache. DC morphine. No fever or leukocytosis. Pt currently on Augusto 1 diet and will advance today as tolerated. Pt states she has been ambulating around hospital floor. Advised to continue ambulating every hour after discharge. Pt also advised to continue using incentive spirometry. Pending confirmation of tolerating advanced diet, she can be discharged this evening. Pt understands the plan and agrees. Hx of PE: finished xeralto course in August. High risk for PE after surgery. Pt is now s/p insertion of IVC filter. She will follow up in the vascular office after discharge. Headache - Resolved. CT head negative. DVT prophylaxis - SCDs and Lovenox Nausea - PRN Zofran GI prophylaxis - Famotidine Subjective Date of service: 11/28/16 Patient Reports: Positive: no new complaints, feels better, pain is less, tolerating liquids well. Negative: diarrhea, nausea, vomiting Narrative: No acute events overnight. Pt reports improved abdominal pain. States is GRAF is resolved. Continues to pass flatus and have bowel movements. Pain is localized at the incision sites. Objective Vital Signs - 12hr 11/28/16 11/28/16 11/28/16 03:41 08:24 08:25 Temperature 98.2 F 98.3 F Pulse Rate 75 80 Respiratory 18 18 Rate Blood Pressure 118/91 116/80 Blood Pressure [Left] O2 Sat by Pulse 97 Oximetry 11/28/16 11/28/16 11:10 11:12 Temperature 98.5 F Pulse Rate 71 Respiratory 18 18 Rate Blood Pressure Blood Pressure 141/82 [Left] O2 Sat by Pulse 98 Oximetry - General physical appearance well developed, well nourished, no distress - Eyes PERRL, normal occular movement - ENT normal nares, no hearing loss, no congestion - Neck trachea midline - Respiratory normal expansion, normal respiratory effort - Abdomen soft, not tender, bowel sounds normal, not distended, other (Incision sites clean and dry. pain at incision sites. no rebound no guarding. ) - Integumentary no rash, no abnormal pigmentation - Neurologic normal coordination, normal sensation - Musculoskeletal normal posture - Psychiatric oriented to time, oriented to person, oriented to place, speech is normal - Labs 11/28/16 11:19 11/28/16 11:19 Diabetes panel 11/28/16 Range/Units 11:19 Sodium 140 (137-145) mmol/L Potassium 4.0 (3.6-5.0) mmol/L Chloride 102.7 (98-107) mmol/L Carbon Dioxide 23 (22-30) mmol/L BUN 4 L (7-17) mg/dL Creatinine 1.0 (0.7-1.2) mg/dL Glucose 91 (65-100) mg/dL Calcium 8.7 (8.4-10.2) mg/dL AST < 5 L (5-40) units/L ALT < 5 L (7-56) units/L Alkaline Phosphatase 65 (35-129) units/L Total Protein 5.8 L (6.3-8.2) g/dL Albumin 3.0 L (3.9-5) g/dL Calcium panel 11/28/16 Range/Units 11:19 Calcium 8.7 (8.4-10.2) mg/dL Albumin 3.0 L (3.9-5) g/dL Pituitary panel 11/28/16 Range/Units 11:19 Sodium 140 (137-145) mmol/L Potassium 4.0 (3.6-5.0) mmol/L Chloride 102.7 (98-107) mmol/L Carbon Dioxide 23 (22-30) mmol/L BUN 4 L (7-17) mg/dL Creatinine 1.0 (0.7-1.2) mg/dL Glucose 91 (65-100) mg/dL Calcium 8.7 (8.4-10.2) mg/dL Adrenal panel 11/28/16 Range/Units 11:19 Sodium 140 (137-145) mmol/L Potassium 4.0 (3.6-5.0) mmol/L Chloride 102.7 (98-107) mmol/L Carbon Dioxide 23 (22-30) mmol/L BUN 4 L (7-17) mg/dL Creatinine 1.0 (0.7-1.2) mg/dL Glucose 91 (65-100) mg/dL Calcium 8.7 (8.4-10.2) mg/dL Total Bilirubin 0.50 (0.1-1.2) mg/dL AST < 5 L (5-40) units/L ALT < 5 L (7-56) units/L Alkaline Phosphatase 65 (35-129) units/L Total Protein 5.8 L (6.3-8.2) g/dL Albumin 3.0 L (3.9-5) g/dL
--- NOTE | 2016-11-28 14:12 | Discharge Summary ---
Providers - Providers Date of Admission: 11/23/16 22:37 Attending physician: YULIET HECK 11/25/16 16:26 Consult to Interventional Radiology [CONS] Routine Consulting Provider: ROSHAN OSPINA Reason For Exam: PE after prev. surg. req temp IVC filter, OR Tues Place consult to:: Dr. Ospina Notified:: Dr. Coker Phone number called:: [phone] Was contact made?: Yes If yes, spoke with:: Dr. Coker Time called:: 17:04 Comment:: Responded at 17:08; Make pt. NPO after MD Primary care physician: PARTY COORDINATOR Hospitalization Reason for admission: abdominal pain Condition: Good Procedures: diagnostic laparoscopy, placement of IVC filter Hospital course: 51 y/o F with PMH of gastric bypass (2007) and gastric bypass revision (2015) presents with worsening abdominal pain. Pt was transferred from [facility] on 11/24. CT abd at [facility] showed dilation to JJ anastomosis, but repeat abd xr showed contrast throughout the entire GI tract without signs of dilation or obstruction. Rpt Abdxr days later showed complete elimination of contrast from GI tract. . Pt was transferred to [facility] for diagnostic lap with possible gastric bypass revision with Dr. Heck. Pt had a previous PE after her revision surgery in 2015 and she recently finished xeralto in August. Due to the high risk of PE in the post operative period, IR was consulted and an IVC filter was placed. Diagnostic laparoscopy did not show any abnormalities that would cause her pain. No revision was needed at that time. On POD 1 her pain was improved and she tolerated a Augusto I diet. She was advanced to [facility] [place] and discharged home with her pain overall improved. Disposition: DC-01 TO HOME OR SELFCARE Core Measure Documentation - Palliative Care Palliative Care/ Comfort Measures: Not Applicable - Core Measures Any of the following diagnoses?: none Exam - Constitutional Vitals: Temp Pulse Resp BP Pulse Ox 98.5 F 71 18 141/82 98 11/28/16 11:10 11/28/16 11:10 11/28/16 11:12 11/28/16 11:10 11/28/16 11:10 General appearance: Present: no acute distress - EENT Eyes: Present: PERRL - Respiratory Respiratory effort: normal - Cardiovascular Rhythm: regular - Extremities Extremities: no ischemia, pulses intact, pulses symmetrical - Abdominal General gastrointestinal: Present: soft (obese, dressings cdi. no rebound no guarding. incisional tenderness. ) - Integumentary Integumentary: Present: clear, warm - Musculoskeletal Musculoskeletal: strength equal bilaterally - Psychiatric Psychiatric: appropriate mood/affect Plan Activity: other (no lifting >15lbs for 6 weeks ) Diet: clear liquids, low carbohydrate (continue previous bariatric diet at home. ) Wound: keep clean and dry Additional Instructions: follow up in Dr. Heck office in 2 weeks. Call to make an appointment. Remove dressings in 2 days and then may shower. No pain medication provided. Pt has states she has percocet at home. Follow up with: PRIMARY CAREMD [Primary Care Provider] - 7 Days ROSHAN OSPINA MD [Staff Physician] - 7 Days YULIET HECK MD [Staff Physician] - 14 Days
[2016-11-28 17:59] VITALS: BP 136/80
== END 2016-11-28 19:53 | disposition home or self-care (01) | DRG 358 ==
LOC: UNDOADMIN 18:03 → 3A 18:03 → 3B-SURG 22:37
PROVIDERS: ADMIT Specialist; ATTEND Specialist
PROC: 06H03DZ Insertion of Intraluminal Device into Inferior Vena Cava, Percutaneous Approach (ICD-10-PCS; principal; 2016-11-26)
PROC: B5191ZA Fluoroscopy of Inferior Vena Cava using Low Osmolar Contrast, Guidance (ICD-10-PCS; 2016-11-26)
PROC: B549ZZA Ultrasonography of Inferior Vena Cava, Guidance (ICD-10-PCS; 2016-11-26)
DX: R10.9 Unspecified abdominal pain (principal); I10 Essential (primary) hypertension; Z86.711 Personal history of pulmonary embolism; Z79.01 Long term (current) use of anticoagulants; Z90.710 Acquired absence of both cervix and uterus; Z98.0 Intestinal bypass and anastomosis status; Z88.8 Allergy status to other drugs, medicaments and biological substances; Z88.1 Allergy status to other antibiotic agents
CPT/HCPCS: 36415; 37191; 70450; 80053; 81001; 83735; 84100; 84134; 85007; 85025; 85610; 86850; 86900; 86901; 87086; 93005; 93010; C1880; J0360; J0690; J1100; J1170; J1200; J1644; J1650; J1885; J2250; J2270; J2370; J2405; J2704; J2710; J3010; J3475; J7040; J7120; Q9967

== ENCOUNTER 2017-08-19 19:56 | Emergency (ER) | payer OTHER ==
[2017-08-19 20:12] VITALS: BP 130/89
== END 2017-08-19 22:45 | disposition left against medical advice (07) ==
LOC: ED 19:56
DX: M54.2 Cervicalgia (principal); M54.5 Low back pain; Z53.21 Procedure and treatment not carried out due to patient leaving prior to being seen by health care provider